=== PATIENT | female | born 1935 ===

== ENCOUNTER → 2018-12-18 13:33 | Outpatient (REF) | payer MEDICARE, BC, SELFPAY ==
[2018-12-18 14:09] LABS: Add Manual Diff / Slide Review NO; Basophils Absolute Auto 100 /uL (0-100); Eosinophils Absolute Auto 400 /uL (0-450); Eosinophils Percent Auto 5.6 % (2-4); Hematocrit 38.1 % (36-46); Hemoglobin 13.4 g/dL (12.0-16.0); Lymphocytes Absolute Auto 2100 /uL (1100-4500); Mean Corpuscular HGB Conc 35.3 % (30-36); Mean Corpuscular Volume 87.9 fL (80-100); Monocytes Absolute Auto 600 /uL (0-900); Monocytes Percent Auto 8.1 % (3-14); Neutrophils Absolute Auto 3700 /uL (1500-7000); Neutrophils Percent Auto 53.3 % (50-75); Platelet Count 225 X10^3/uL (150-400); Red Blood Cell Count 4.33 X10^6/uL (4.0-5.2); White Blood Cell Count 6.9 X10^3/uL (4.5-11.0)
[2018-12-18 14:16] LABS: HEMOLYSIS < 15 (0-50); Iron 78 ug/dL (37-170)
[2018-12-18 14:27] LABS: Percent Iron Saturation 26 % (15-50); Total Iron Binding Capacity 305 ug/dL (265-497); Transferrin 210 mg/dL (206-381)
[2018-12-18 15:23] LABS: Folate > 20.0 ng/mL (2.76-20.0); Vitamin B12 817 pg/mL (239-931)
== END ==
LOC: LAB 13:33
PROVIDERS: Visit Provider Family Medicine
DX: D64.9 Anemia, unspecified (principal)
CPT/HCPCS: 36415; 82607; 82746; 83540; 83550; 85025